=== PATIENT | male | born 1995 | race Caucasian/White ===

== ENCOUNTER 2017-09-24 02:11 | Emergency (ER) | payer MEDICAID, OTHER ==
[2017-09-24 02:20] VITALS: RESP 18; O2SAT 95
[2017-09-24 02:37] LABS: URINE BILIRUBIN NEGATIVE (NEGATIVE); URINE BLOOD NEGATIVE (NEGATIVE); URINE CLARITY Clear (Clear); URINE COLOR Yellow (YELLOW); URINE GLUCOSE (UA) NORMAL (Normal); URINE LEUKOCYTE ESTERASE NEG Leu/uL (Negative); URINE PROTEIN NEGATIVE (NEGATIVE); URINE UROBILINOGEN NORMAL mg/dL (0.2-1.0)
--- NOTE | 2017-09-24 02:58 | C.PDOC ---
History Of Present Illness 22 year old male presents to the ED c/o right lower back pain for the past 2 days, pain is worse with movements. Patient reports having PMhx of UTI and has been treated several times in the past for those. Patient denies trauma, injury , fall, dysuria, hematuria, urgency, weakness, numbness. Time Seen by Provider: 09/24/17 02:22 Chief Complaint (Nursing): Male Genitourinary History Per: Patient History/Exam Limitations: no limitations Onset/Duration Of Symptoms: Days (2) Current Symptoms Are (Timing): Still Present Quality Of Discomfort: "Pain" Associated Symptoms: Back Pain Alleviating Factors: None Recent travel outside of the [place]: No Additional History Per: Patient Past Medical History Reviewed: Historical Data, Nursing Documentation, Vital Signs Vital Signs: Last Vital Signs Temp 98.2 F 09/24/17 03:00 Pulse 68 09/24/17 03:00 Resp 18 09/24/17 03:00 BP 118/69 09/24/17 03:00 Pulse Ox 95 09/24/17 04:03 - Medical History PMH: No Chronic Diseases Surgical History: No Surg Hx - [facility] Procedures APPLICATION OF SPLINT (02/18/14) Family History: States: Unknown Family Hx - Social History Hx Tobacco Use: No Hx Alcohol Use: No Hx Substance Use: No - Immunization History Hx Tetanus Toxoid Vaccination: No Hx Influenza Vaccination: No Hx Pneumococcal Vaccination: No Review Of Systems Constitutional: Negative for: Fever, Chills Respiratory: Negative for: Cough, Shortness of Breath Gastrointestinal: Negative for: Nausea, Vomiting, Abdominal Pain Musculoskeletal: Positive for: Back Pain Neurological: Negative for: Weakness, Numbness Physical Exam - Physical Exam Appears: Non-toxic, No Acute Distress Skin: Normal Color, Warm, Dry Head: Atraumatic, Normacephalic Eye(s): bilateral: Normal Inspection Oral Mucosa: Moist Neck: Normal ROM, Supple Chest: Symmetrical Cardiovascular: Rhythm Regular Respiratory: Normal Breath Sounds, No Rales, No Rhonchi, No Wheezing Gastrointestinal/Abdominal: Soft, No Tenderness, No Guarding, No Rebound Back: No CVA Tenderness, No Vertebral Tenderness, Paraspinal Tenderness (right lumbar) Extremity: Normal ROM, No Tenderness, No Swelling Neurological/Psych: Oriented x3, Normal Speech Gait: Steady ED Course And Treatment O2 Sat by Pulse Oximetry: 95 (On RA) Pulse Ox Interpretation: Normal Progress Note: Plan: - Tylenol 975 mg PO. - UA. UA reviewed and normal and patient was advised to take Tylenol for pain and muscle relaxer prescribed and follow up with PMD. 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 - Scribe Statement The provider has reviewed the documentation as recorded by the Scribe Jaron Perez All medical record entries made by the Scribger were at my direction and personally dictated by me. I have reviewed the chart and agree that the record accurately reflects my personal performance of the history, physical exam, medical decision making, and the department course for this patient. I have also personally directed, reviewed, and agree with the discharge instructions and disposition.
[2017-09-24 03:05] VITALS: BP 118/69; PULSE 68; TEMP 98.2
== END 2017-09-24 03:11 | disposition home or self-care (01) ==
LOC: C.ER 02:11
DX: M54.5 Low back pain (principal)